=== PATIENT | female | born 2005 | race Caucasian/White ===

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

== ENCOUNTER 2023-05-25 00:42 | Emergency (ER) | payer OTHER ==
[2023-05-25 01:01] VITALS: BP 114/73; PULSE 77; RESP 20; TEMP 98.8; BMI 28.3
== END 2023-05-25 02:16 | disposition home or self-care (01) ==
LOC: JER 00:42
DX: R50.9 Fever, unspecified (principal); R09.81 Nasal congestion; R05.9 Cough, unspecified; R10.9 Unspecified abdominal pain; R19.7 Diarrhea, unspecified; B34.9 Viral infection, unspecified; Z20.822 Contact with and (suspected) exposure to COVID-19
CPT/HCPCS: 0241U-QW; 84703; 99283-25